=== PATIENT | male | born 2000 | race Two or more races ===

== ENCOUNTER 2020-08-16 06:11 | Emergency (ER) | payer MEDICAID ==
[~2020-08-16] VITALS: Ht 177.8 cm; Wt 76.3 kg
[2020-08-16 06:30] VITALS: BP 152/92
[2020-08-16] MEDS ORDERED: MAGNESIUM CITRATE 300ML SOLUTION PO ONE (06:45)
[2020-08-16] MEDS ORDERED: DOCUSATE SODIUM 250MG CAPSULE PO ONE ×2 (06:45→07:00)
[2020-08-16] MEDS ORDERED: SODIUM CHLORIDE 0.9% 1,000 ML IV ONE (06:45)
== END 2020-08-16 07:16 | disposition home or self-care (01) ==
LOC: ER 06:11
DX: K59.00 Constipation, unspecified (principal); K62.5 Hemorrhage of anus and rectum; I49.9 Cardiac arrhythmia, unspecified
CPT/HCPCS: 93005; 99283; J7030